=== PATIENT | female | born 1960 ===

== ENCOUNTER 2017-02-24 09:06 | Day surgery (SDC) | payer MEDICARE, MEDICAID ==
[2014-10-10 21:12] VITALS: BMI 36.6
[2017-02-24] MEDS ORDERED: Lactated Ringer's 500 ML IV ONE (09:28)
[2017-02-24 09:42] VITALS: O2SAT 100
[2017-02-24] MEDS ORDERED: Propofol 10 mg/ml Inj (20 ML) ONE (09:51)
[2017-02-24 11:31] VITALS: TEMP 96.8
[2017-02-24 11:48] VITALS: BP 105/57; PULSE 54; RESP 13
== END 2017-02-24 12:11 | disposition home or self-care (01) ==
LOC: H.ENDO 09:06
PROVIDERS: ATTEND Internal Medicine Gastroenterology
DX: K64.8 Other hemorrhoids (principal); D50.9 Iron deficiency anemia, unspecified; K59.00 Constipation, unspecified; E07.9 Disorder of thyroid, unspecified
CPT/HCPCS: 45378; J2001; J2704; J7120

== ENCOUNTER 2017-07-14 07:42 | Day surgery (SDC) | payer MEDICARE, MEDICAID ==
[2017-07-14 08:06] VITALS: BMI 33.6
[2017-07-14] MEDS ORDERED: Lactated Ringer's 500 ML IV ONE (08:15)
[2017-07-14 09:21] VITALS: TEMP 96.8
[2017-07-14] MEDS ORDERED: Propofol 10 mg/ml Inj (20 ML) ONE (10:43)
[2017-07-14 11:21] VITALS: BP 113/67; PULSE 55; RESP 17; O2SAT 99
== END 2017-07-14 11:45 | disposition home or self-care (01) ==
LOC: H.ENDO 07:42
PROVIDERS: ATTEND Internal Medicine Gastroenterology
DX: D50.9 Iron deficiency anemia, unspecified (principal); K22.8 Other specified diseases of esophagus; K31.9 Disease of stomach and duodenum, unspecified; K44.9 Diaphragmatic hernia without obstruction or gangrene
CPT/HCPCS: 43239; 82948; 88305; J2001; J2704; J7120